=== PATIENT | male | born 1950 | race Caucasian/White ===

== ENCOUNTER 2024-10-02 16:34 | Emergency (ER) | payer OTHER, SELFPAY ==
[2024-10-02] VITALS (16 sets, daily range): BP systolic 130–148; BP diastolic 85–109; PULSE 96–117; RESP 13–30; TEMP 36.8; O2SAT 94–98; BMI 23.8
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
[2024-10-02] MEDS: 0.9% Normal Saline (1000mL) 1,000 ML 1000 ML IV (16:58)
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
[2024-10-02 18:35] LABS: Absolute Lymphocyte Count 1.52 X10^3/uL (0.83-4.51); Absolute Neutrophil Count 6.9 X10^3/uL (2.0-7.7); Basophil# 0.07 X10^3/uL; Basophil% 0.7 % (0-1); Eosinophil# 0.05 X10^3/uL; Eosinophils% 0.5 % (0-5); Hematocrit 46.2 % (40-54); Hemoglobin 15.5 g/dL (13.0-16.5); Lymphocyte # 1.52 X10^3/ul (0.83-4.51); Lymphocyte % 15.3 % (19-41); Mean Corp Hgb Conc 33.5 g/dL (32-36); Mean Corpuscular Hgb 31.5 pg (27.0-32.0); Mean Corpuscular Volume 93.9 fL (80-94); Mean Platelet Vol. 10.9 fl (6.2-12.0); Monocyte# 1.32 X10^3/uL; Monocyte% 13.3 % (0-10); NRBC Flagged by Analyzer 0 % (0-5); Neutrophil # 6.92 X10^3/uL (2.7-7.7); Neutrophil % 69.9 % (47-70); Platelet Count 301 K/mm3 (150-450); RBC Distribution Width CV 15.3 % (11.6-14.6); Red Blood Count 4.92 M/mm3 (4.6-6.2); White Blood Count 9.9 K/mm3 (4.4-11.0)
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
[2024-10-02 18:49] LABS: Bacteria 0 SEEN /hpf (None Seen); Mucous, Urine 0 SEEN /hpf (<or=2+); Squamous Epithelial Cells - UA 0 SEEN /hpf (0-5)
[2024-10-02 18:58] LABS: ALB/GLOB Ratio 1.6 RATIO (0.9-2.4); AST(SGOT) 33 U/L (<=37); Alanine Aminotransfer ALT/SGPT 19 U/L (<=46); Albumin, Serum 4.3 g/dL (3.4-4.8); Alkaline Phosphatase 94 U/L (40-129); Anion Gap 20 (5-15); BUN 13 mg/dL (4-19); BUN/Creat Ratio 16.6 RATIO (10-20); Calcium,Total 9.4 mg/dL (7.6-11.0); Carbon Dioxide 18.9 mmol/L (21.0-32.0); Chloride 99 mmol/L (98-108); EST Glomerular Filtration Rate 94 (>60); Estimated Creatinine Clearance 80.75 ml/min (50-250); Globulin 2.8 g/dL (2.2-4.2); Glucose 113 mg/dL (70-99); Lipase 70 U/L (13-75); Potassium 3.7 mmol/L (3.3-5.1); Protein, Total 7.1 g/dL (5.9-8.4); Sodium Level 138 mmol/L (133-145); Total Bilirubin 0.59 mg/dL (0.00-1.30)
[2024-10-02 19:00] LABS: Amphetamine Urine NEGATIVE (<1000 ng/mL); Barbiturate Urine NEGATIVE (< 200 ng/mL); Benzodiazepine Urine NEGATIVE (< 200 ng/mL); Buprenorphine Urine NEGATIVE (< 200 ng/mL); Cocaine Urine NEGATIVE (< 300 ng/mL); Fentanyl, Urine NEGATIVE; Methadone Urine NEGATIVE (< 300 ng/mL); Opiates Urine NEGATIVE (< 300 ng/mL); Oxycodone, Urine NEGATIVE (< 100 ng/mL); PCP Urine NEGATIVE (< 25 ng/mL); THC Urine PRESUMPTIVE POSITIVE (< 50 ng/mL)
[2024-10-02 19:15] LABS: Troponin T High Sensitivity 17 ng/L (<=22)
[2024-10-02 19:27] LABS: Color, Urine Straw (Yellow); Glucose, Dipstick 1000 mg/dl (Normal); Ketone-Dipstick Negative (Negative); Leukocyte Esterase-Dipstick Negative /ul (Negative); Nitrite-Dipstick Negative (Negative); Protein-Dipstick Negative (Negative); Urine Bilirubin Dipstick Negative (Negative); Urine Clarity Clear (Clear); Urine Urobilinogen Normal (Normal)
[2024-10-02 19:31] LABS: Occult Blood-Urine Negative /ul (Negative)
[2024-10-02 20:12] LABS: Troponin T High Sens 2 HR 16 ng/L (<=22)
[2024-10-02 20:40] LABS: Red Blood Cells-Urine 0-5 SEEN /hpf (0-5); White Blood Cells 0-5 SEEN /hpf (0-5)
== END 2024-10-02 22:02 | disposition short-term general hospital (02) ==
PROVIDERS: Emergency Provider Surgery; Visit Provider Surgery
DX: S06.9X1A Unspecified intracranial injury with loss of consciousness of 30 minutes or less, initial encounter (principal); E11.9 Type 2 diabetes mellitus without complications; S22.42XA Multiple fractures of ribs, left side, initial encounter for closed fracture; V27.49XA Other motorcycle driver injured in collision with fixed or stationary object in traffic accident, initial encounter; Y92.410 Unspecified street and highway as the place of occurrence of the external cause; J98.11 Atelectasis; N32.89 Other specified disorders of bladder; N13.30 Unspecified hydronephrosis
CPT/HCPCS: 70450; 71101; 71260; 72125; 74177; 80053; 80307; 81001; 82077; 83690; 84484; 85025; 93005; 96360; 99285; A4216